=== PATIENT | male | born 1990 | race African-American/Black ===

== ENCOUNTER 2017-09-15 11:26 | Emergency (ER) | payer SELFPAY ==
[~2017-09-15] VITALS: Ht 167.6 cm; Wt 81.8 kg
[~2017-09-15 11:26] MED LIST: DOXYCYCLINE 10100 MG PO; NO HOME MEDICATIONS; NORCO 325 MG-51 TAB PO
[2017-09-15 11:30] VITALS: BP 150/90; TEMP 99.2
[2017-09-15] MEDS ORDERED: CLINDAMYCIN150 MG PO (12:47)
[2017-09-15] MEDS ORDERED: NORCO 325 MG-51 TAB PO (12:47)
[2017-09-15 13:04] VITALS: PULSE 87
== END 2017-09-15 13:06 | disposition home or self-care (01) ==
LOC: COL.ER 11:26
DX: L02.214 Cutaneous abscess of groin (principal); F17.210 Nicotine dependence, cigarettes, uncomplicated; F12.90 Cannabis use, unspecified, uncomplicated

== ENCOUNTER 2019-07-27 18:54 | Emergency (ER) | payer SELFPAY ==
[~2019-07-27] VITALS: Ht 167.6 cm; Wt 86.4 kg
[~2019-07-27 18:54] MED LIST changes: +CLINDAMYCIN150 MG PO
[2019-07-27 19:02] VITALS: BP 140/84; TEMP 98.6
[2019-07-27] MEDS ORDERED: LOTRIMIN ULTRA1% TP (19:18)
[2019-07-27 19:30] VITALS: PULSE 82
== END 2019-07-27 19:28 | disposition home or self-care (01) ==
LOC: COL.ER 18:54
DX: B35.3 Tinea pedis (principal); F17.210 Nicotine dependence, cigarettes, uncomplicated